=== PATIENT | male | born 1995 | race African-American/Black ===

== ENCOUNTER 2021-10-24 12:21 | Outpatient (REF) | payer OTHER, SELFPAY ==
[2021-10-24 15:43] LABS: CT PCR NOT DETECTED (Not Detect.); NG PCR NOT DETECTED (Not Detect.)
[2021-10-25 08:12] LABS: HIV AB/AG Nonreactive (Nonreactive); HIV Num 1 0.08 S/CO (0.00-0.99)
[2021-10-25 08:24] LABS: Syphilis Screen Nonreactive (Nonreactive)
== END 2021-10-24 12:22 | disposition home or self-care (01) ==
LOC: HO.HMGCLDS 12:21
PROVIDERS: Visit Provider Internal Medicine
DX: Z11.4 Encounter for screening for human immunodeficiency virus [HIV] (principal); Z11.3 Encounter for screening for infections with a predominantly sexual mode of transmission
CPT/HCPCS: 36415; 86780; 87389; 87491; 87591